=== PATIENT | female | born 1965 | race Hispanic/Latino ===

== ENCOUNTER 2024-05-15 15:00 | Inpatient (IN) | payer OTHER ==
[~2024-05-15] VITALS: Ht 167.6 cm; Wt 124.4 kg
[2024-05-15 13:45] LABS: BASOPHILS # (AUTO) 0.04 K/uL (0.00-0.20); BASOPHILS % (AUTO) 0.4 % (0.0-5.0); EOSINOPHILS # (AUTO) 0.15 K/uL (0.00-0.70); EOSINOPHILS % (AUTO) 1.6 % (0.0-8.0); HEMATOCRIT 33.9 % (36-48); IMMATURE GRANULOCYTE ABSOLUTE 0.02 K/uL (0-1); LYMPHOCYTES # (AUTO) 3.3 K/uL (1.0-4.8); LYMPHOCYTES % (AUTO) 35.6 % (21.0-51.0); MEAN CORPUSCULAR HEMOGLOBIN 22.2 pg (27.0-33.0); MEAN CORPUSCULAR HGB CONC 29.2 g/dL (32.0-36.0); MONOCYTES # (AUTO) 0.7 K/uL (0.1-1.0); MONOCYTES % (AUTO) 7.6 % (3.0-13.0); NEUTROPHILS # (AUTO) 5.1 K/uL (1.8-7.7); NEUTROPHILS % (AUTO) 54.6 % (40.0-77.0); PLATELET COUNT (AUTO) 443 K/uL (130-400); RED BLOOD CELL COUNT(AUTO) 4.46 MIL/uL (4.00-5.50); RED CELL DISTRIBUTION WIDTH 17.2 % (11.0-15.5); WHITE BLOOD COUNT (AUTO) 9.3 K/uL (4.8-10.8)
[2024-05-15 13:55] LABS: ALBUMIN 3.1 g/dL (3.5-5.0); BILIRUBIN,TOTAL 0.2 mg/dL (0.2-1.0); CREATININE 0.8 mg/dL (0.5-1.0); TOTAL PROTEIN, SERUM 7.1 g/dL (6.0-8.3)
[2024-05-15 14:33] VITALS: BP 168/72; PULSE 69; RESP 18
[~2024-05-15 15:00] MED LIST: FLUT200B IH
[2024-05-15 15:01] LABS: INR 0.96 (0.85-1.15); PROTHROMBIN TIME 10.4 SEC (9.6-11.6)
[2024-05-15 15:02] LABS: PARTIAL THROMBOPLASTIN TIME 27.2 SEC (26.3-35.5)
[2024-05-15] MEDS ORDERED: FERS325 PO (20:44)
[2024-05-15] MEDS ORDERED: AMLO-257 PO (20:44)
[2024-05-15] MEDS ORDERED: OLME40TA18 PO (20:44)
[2024-05-15] MEDS ORDERED: FURO40TA5 PO (20:44)
[2024-05-15] MEDS ORDERED: BISA-151 PO (20:44)
[2024-05-15] MEDS ORDERED: OMEP40CA21 PO (20:44)
[2024-05-15] MEDS ORDERED: HYDR25TA67 PO (20:44)
[2024-05-15] MEDS ORDERED: ROSU10TA72 PO (20:44)
[2024-05-15] MEDS ORDERED: POTA99CA PO (20:44)
[2024-05-15] MEDS ORDERED: ALBU18HF7 IH (20:44)
[2024-05-19] VITALS (21 sets, daily range): BP systolic 110–139; BP diastolic 7–76; PULSE 68–109; RESP 15–18
[2024-05-19] MEDS: INVANZ 1GM+NS 50ML IVPB 50 ML IV ONE (07:00)
[2024-05-19] MEDS: 0.9%NACL 1000ML 1,000 ML IV ONE (11:22)
[2024-05-19] MEDS: MEROPENEM 1 GM VIAL ONE (13:00)
[2024-05-19] MEDS: LACTATED RINGERS 1000ML 1,000 ML IV ONE (13:07)
[2024-05-19] MEDS: SUGAMMADEX SODIUM 200 MG/2 ML VIAL IV ONE (13:40)
[2024-05-19] MEDS: hydroMORPHone 1 MG INJ ONE (13:40)
[2024-05-19] MEDS ORDERED: SUCCINYLCHOLINE CHLORIDE 20 MG/ML 10 ML VIAL ONE (13:53)
[2024-05-19] MEDS ORDERED: ePHEDrine SULFate 50 MG/ML AMPULE ONE (13:53)
[2024-05-19] MEDS ORDERED: GLYCOPYRROLATE 0.2 MG/ML 5 ML VIAL ONE (13:53)
[2024-05-19] MEDS ORDERED: proPOFol 10 MG/ML 20ML VIAL IV ONE (13:53)
[2024-05-19] MEDS ORDERED: FENTanyl CITRate PF 50 MCG/1 ML 2ML VIAL ONE (13:54)
[2024-05-19] MEDS ORDERED: rocuRONium bROMide 10MG/1ML 5ML VL ONE ×2 (13:54→15:04)
[2024-05-19] MEDS ORDERED: ONDANSETRON 4MG INJ ONE (13:56)
[2024-05-19] MEDS ORDERED: LIDOCAINE PF 100MG/5ML (2%) SYRINGE 5ML ONE (13:56)
[2024-05-19] MEDS ORDERED: BUPIvacaine/PF 0.5% 30ML VIAL ONE (14:16)
[2024-05-19] MEDS ORDERED: LIDOCAINE 1%-EPI 1:100,000 20 ML VIAL ONE (14:17)
[2024-05-19] MEDS: MEROPENEM 1 GM VIAL IVPB ONE (14:40)
[2024-05-19] MEDS ORDERED: dexaMETHasone SOD PHOSPHATE 4 MG/ML 1ML VIAL ONE (15:05)
[2024-05-19] MEDS: acetaMINOPHEN 1,000 MG/100 ML VIAL IV ONE (16:02)
[2024-05-19] MEDS: INDOCYANINE GREEN 25 MG VIAL IJ ONE (17:29)
[2024-05-19] MEDS: LACTATED RINGERS 1000ML 1,000 ML IV SCH (19:00)
[2024-05-19] MEDS ORDERED: INSULIN humuLIN R 100 UNIT/ML 3ML SQ PRN (19:00)
[2024-05-19] MEDS: MEPERIDINE-PF 25 MG/ML SYG ONE ×2 (19:33→19:44)
[2024-05-20] VITALS (7 sets, daily range): BP systolic 121–142; BP diastolic 58–75; PULSE 66–84; RESP 17–18; O2SAT 93
[2024-05-20] MEDS: OXYCODONE HCL 5 MG TAB PO PRN (00:55)
[2024-05-20] MEDS: hydroMORPHone 0.5 MG SYG (0.5MG/0.5ML) IVP PRN (03:32)
[2024-05-20 05:27] LABS: BASOPHILS # (AUTO) 0.01 K/uL (0.00-0.20); BASOPHILS % (AUTO) 0.1 % (0.0-5.0); HEMATOCRIT 33.5 % (36-48); IMMATURE GRANULOCYTE ABSOLUTE 0.04 K/uL (0-1); LYMPHOCYTES # (AUTO) 1.3 K/uL (1.0-4.8); LYMPHOCYTES % (AUTO) 11.6 % (21.0-51.0); MEAN CORPUSCULAR HEMOGLOBIN 22.5 pg (27.0-33.0); MEAN CORPUSCULAR HGB CONC 29.6 g/dL (32.0-36.0); MEAN CORPUSCULAR VOLUME 76.1 fL (79-99); MONOCYTES # (AUTO) 0.7 K/uL (0.1-1.0); MONOCYTES % (AUTO) 5.6 % (3.0-13.0); NEUTROPHILS # (AUTO) 9.6 K/uL (1.8-7.7); NEUTROPHILS % (AUTO) 82.4 % (40.0-77.0); PLATELET COUNT (AUTO) 437 K/uL (130-400); RED CELL DISTRIBUTION WIDTH 16.8 % (11.0-15.5); WHITE BLOOD COUNT (AUTO) 11.6 K/uL (4.8-10.8)
[2024-05-20 05:41] LABS: HEMOGLOBIN A1C 5.7 % (4.0-6.0)
[2024-05-20 05:42] LABS: CREATININE 0.7 mg/dL (0.5-1.0); POTASSIUM 4.4 mmol/L (3.5-5.1)
[2024-05-20] MEDS: acetaMINOPHEN 325 MG TAB PO SCH (07:00)
[2024-05-20] MEDS: GABApentin 100 MG CAPSULE PO SCH (08:17)
[2024-05-20] MEDS: FAMOTIDINE 20MG VIAL IV SCH (08:17)
[2024-05-20] MEDS: ONDANSETRON 4MG INJ IVP PRN (08:18)
[2024-05-20] MEDS: acetaMINOPHEN 1,000 MG/100 ML VIAL IV PRN (08:22)
[2024-05-20] MEDS: ENOXAPARIN SODIUM 40 MG/0.4 ML SYRINGE SQ SCH (09:14)
[2024-05-21 00:31] VITALS: BP 118/62; PULSE 69; RESP 18
[2024-05-21 03:51] LABS: BASOPHILS # (AUTO) 0.05 K/uL (0.00-0.20); BASOPHILS % (AUTO) 0.5 % (0.0-5.0); EOSINOPHILS # (AUTO) 0.05 K/uL (0.00-0.70); EOSINOPHILS % (AUTO) 0.5 % (0.0-8.0); HEMATOCRIT 33.8 % (36-48); IMMATURE GRANULOCYTE ABSOLUTE 0.03 K/uL (0-1); LYMPHOCYTES # (AUTO) 2.4 K/uL (1.0-4.8); MEAN CORPUSCULAR HEMOGLOBIN 22.2 pg (27.0-33.0); MEAN CORPUSCULAR VOLUME 76.5 fL (79-99); MONOCYTES # (AUTO) 0.6 K/uL (0.1-1.0); MONOCYTES % (AUTO) 6.4 % (3.0-13.0); NEUTROPHILS # (AUTO) 6.9 K/uL (1.8-7.7); NEUTROPHILS % (AUTO) 68.3 % (40.0-77.0); PLATELET COUNT (AUTO) 446 K/uL (130-400); RED BLOOD CELL COUNT(AUTO) 4.42 MIL/uL (4.00-5.50); RED CELL DISTRIBUTION WIDTH 17.3 % (11.0-15.5)
[2024-05-21 04:15] VITALS: BP 104/66; PULSE 72; RESP 18
[2024-05-21 04:20] LABS: CREATININE 0.8 mg/dL (0.5-1.0); POTASSIUM 3.8 mmol/L (3.5-5.1)
[2024-05-21 08:00] VITALS: BP 127/64; PULSE 50; RESP 16; O2SAT 92
[2024-05-21] MEDS: BisaCODYL 10 MG SUPP.RECT RC ONE (11:16)
[2024-05-21 12:00] VITALS: BP 123/72; PULSE 68; RESP 19
[2024-05-21 16:00] VITALS: BP 112/65; PULSE 72; RESP 17
== END 2024-05-21 18:45 | disposition home or self-care (01) | DRG 330 ==
LOC: DAHIP 05-19 11:29 → EDSTATUS 05-19 15:00 → 4DH 05-19 20:08
PROVIDERS: ADMIT Surgery; ATTEND Surgery
PROC: 0DUU47Z Supplement Omentum with Autologous Tissue Substitute, Percutaneous Endoscopic Approach (ICD-10-PCS; 2024-05-19)
PROC: 8E0W4CZ Robotic Assisted Procedure of Trunk Region, Percutaneous Endoscopic Approach (ICD-10-PCS; 2024-05-19)
PROC: 0DTG4ZZ Resection of Left Large Intestine, Percutaneous Endoscopic Approach (ICD-10-PCS; principal; 2024-05-19 14:33)
DX: C18.6 Malignant neoplasm of descending colon (principal); Z68.41 Body mass index [BMI] 40.0-44.9, adult; R73.9 Hyperglycemia, unspecified; D64.9 Anemia, unspecified; E66.01 Morbid (severe) obesity due to excess calories; E78.5 Hyperlipidemia, unspecified; K21.9 Gastro-esophageal reflux disease without esophagitis; I10 Essential (primary) hypertension; J45.909 Unspecified asthma, uncomplicated; Z82.0 Family history of epilepsy and other diseases of the nervous system; Z82.49 Family history of ischemic heart disease and other diseases of the circulatory system; Z83.3 Family history of diabetes mellitus; Z93.3 Colostomy status
CPT/HCPCS: 36415; 74018; 80048; 80053; 81025; 82948; 83036; 85025; 85610; 85730; 86850; 86900; 86901; 93005; A4344; G0378; J0330; J1100; J1170; J1335; J1650; J2001; J2175; J2185; J2405; J2704; J3010; J3490; J7030; J7120; A4215; A4216; A4221; A4222; A4223; A4600; A4649; A4663; A4930; A6260; G0168; J0665